=== PATIENT | male | born 1970 | race Caucasian/White ===

== ENCOUNTER → 2017-02-12 | Outpatient (CLI) | payer OTHER ==
[~2017-02-12] MED LIST: CYCL-259 PO; GABA300C10 PO; GUAI-103 PO; MV-M1TAB29 PO; OMEP20TA62 PO
[2017-02-12 09:20] LABS: HEMATOCRIT 46.5 % (39.2-51.8); HEMOGLOBIN 15.9 g/dL (13.7-18.0); WHITE BLOOD COUNT 9.9 x10^3/uL (3.4-10)
[2017-02-12 09:29] LABS: ASPARTATE AMINO TRANSFERASE 27 U/L (15-37); BLOOD UREA NITROGEN 17 mg/dL (7-18)
[2017-02-12 11:01] LABS: HIV 1&2 ANTIBODY SCREEN Nonreactive (Nonreactive); HIV-1 p24 ANTIGEN Nonreactive (Nonreactive)
== END | disposition home or self-care (01) ==
LOC: STAR 08:20
PROVIDERS: ATTEND Orthopaedic Surgery Orthopaedic Surgery of the Spine
DX: Z01.811 Encounter for preprocedural respiratory examination (principal); M50.10 Cervical disc disorder with radiculopathy, unspecified cervical region; R79.1 Abnormal coagulation profile
CPT/HCPCS: 36415; 71020; 80053; 80074; 81003; 85025; 85610; 85651; 85730; 86703; 87899; 93005; G0435

== ENCOUNTER 2017-02-18 05:28 | Inpatient (IN) | payer OTHER ==
[~2017-02-18] VITALS: Ht 175.3 cm; Wt 90.0 kg
[2017-02-18] MEDS ORDERED: LACTATED RINGERS 1,000 ML IV SCH (06:15)
[2017-02-18] MEDS ORDERED: BUPIVACAINE/PF 0.5% ONE (06:59)
[2017-02-18] MEDS ORDERED: BUPIVACAINE/PF 0.25% ONE (07:00)
[2017-02-18] MEDS ORDERED: THROMBIN 5,000 UNIT VIAL TP ONE (07:00)
[2017-02-18] MEDS ORDERED: LIDOCAINE/PF 1%-EPI 1:200K, 30 ML ONE (07:00)
[2017-02-18] MEDS ORDERED: EPINEPHRINE 1 MG/ML, 1ML ONE (07:00)
[2017-02-18] MEDS ORDERED: BACITRACIN 50,000 UNIT ONE (07:19)
[2017-02-18] MEDS ORDERED: PROMETHAZINE 25 MG/ML, 1ML IV PRN (07:30)
[2017-02-18] MEDS ORDERED: ONDANSETRON 2MG/ML, 2ML IVPush PRN (07:30)
[2017-02-18] MEDS ORDERED: MEPERIDINE/PF 25MG/0.5ML IVPush PRN (07:30)
[2017-02-18] MEDS ORDERED: FENTANYL PF 100 MCG/2ML IV PRN (07:30)
[2017-02-18] MEDS ORDERED: LABETALOL 5MG/ML, 20ML IV PRN ×2 (07:30→15:00)
[2017-02-18] MEDS ORDERED: hydrALAzine 20 MG/ML, 1ML IV PRN (07:30)
[2017-02-18] MEDS ORDERED: OXYcodone 5 MG/5 ML ORAL.SOL UDC PO PRN (07:30)
[2017-02-18] MEDS ORDERED: ACETAMINOPHEN 325 MG TABLET PO PRN (07:30)
[2017-02-18] MEDS ORDERED: NEOSTIGMINE 1 MG/ML, 10ML ONE (07:42)
[2017-02-18] MEDS ORDERED: SUCCINYLCHOLINE 20 MG/ML, 10ML ONE (07:42)
[2017-02-18] MEDS ORDERED: MIDAZOLAM 1 MG/ML, 2ML ONE (07:42)
[2017-02-18] MEDS ORDERED: ROCURONIUM 10 MG/ML ONE (07:42)
[2017-02-18] MEDS ORDERED: DEXAMETHASONE 4 MG/ML, 5ML ONE (07:42)
[2017-02-18] MEDS ORDERED: GLYCOPYRROLATE 0.2MG/1ML, 5ML ONE (07:42)
[2017-02-18] MEDS ORDERED: PROPOFOL 10 MG/ML, 50ML ONE (07:42)
[2017-02-18] MEDS ORDERED: CEFAZOLIN 1,000 MG ONE (07:42)
[2017-02-18] MEDS ORDERED: PROPOFOL 10 MG/ML, 20ML ONE (07:42)
[2017-02-18] MEDS ORDERED: BUPIVACAINE/PF 0.25% INFIL ONE (11:36)
[2017-02-18] MEDS ORDERED: HYDROmorphone 1 MG/ML, 1ML ONE (12:21)
[2017-02-18] MEDS: HYDROmorphone 1 MG/ML, 1ML IV PRN ×2 (12:22→12:40)
[2017-02-18] MEDS ORDERED: DIAZEPAM 5 MG/ML, 2ML IV ONE (12:30)
[2017-02-18] MEDS ORDERED: ACETAMINOPHEN 650 MG/20.3 ML UDC ONE (12:44)
[2017-02-18] MEDS ORDERED: OXYcodone 5 MG/5 ML ORAL.SOL UDC ONE (12:44)
[2017-02-18 14:00] VITALS: BP 117/77
[2017-02-18] MEDS ORDERED: DIPHENHYDRAMINE 50 MG/ML, 1ML IM PRN (15:00)
[2017-02-18] MEDS ORDERED: BISACODYL 10 MG SUPP PR PRN (15:00)
[2017-02-18] MEDS ORDERED: DIPHENHYDRAMINE 50 MG/ML, 1ML IVPush PRN (15:00)
[2017-02-18] MEDS ORDERED: MAGNESIUM HYDROXIDE 8%, 30ML UDC PO PRN (15:00)
[2017-02-18] MEDS ORDERED: DIPHENHYDRAMINE 50 MG CAPSULE PO PRN (15:00)
[2017-02-18] MEDS ORDERED: PROMETHAZINE 25 MG SUPP PR PRN (15:30)
[2017-02-18] MEDS ORDERED: DEXAMETHASONE 4 MG/ML, 1ML IV ONE (16:00)
[2017-02-18] MEDS: D5%-0.9% NACL+KCL 20MEQ 1,000 ML IV SCH (16:01)
[2017-02-18] MEDS: NICOTINE 14MG/24 HR PATCH.TD24 TD SCH (16:14)
[2017-02-18] MEDS: DEXAMETHASONE 4 MG/ML, 1ML IVPush SCH ×2 (16:30→23:12)
[2017-02-18] MEDS: HYDROmorphone 1 MG/ML, 1ML IVPush PRN ×2 (16:32→19:41)
[2017-02-18] MEDS: CEFAZOLIN PMX 1GM/50ML 50 ML IVPB SCH (19:24)
[2017-02-18] MEDS ORDERED: HYDROmorphone 1 MG/ML, 1ML IM PRN (20:54)
[2017-02-18] MEDS ORDERED: ZOLPIDEM 5MG TABLET PO PRN (21:00)
[2017-02-18] MEDS: PROMETHAZINE 25 MG/ML, 1ML IM PRN (21:06)
[2017-02-18 21:11] VITALS: BP 121/82
[2017-02-18] MEDS: DIAZEPAM 5 MG TABLET PO PRN (23:12)
[2017-02-18 23:24] VITALS: BP 118/88
[2017-02-19] MEDS: D5%-0.9% NACL+KCL 20MEQ 1,000 ML IV SCH (00:20)
[2017-02-19] MEDS: PROMETHAZINE 25 MG/ML, 1ML IM PRN (01:18)
[2017-02-19] MEDS ORDERED: LABETALOL 5MG/ML, 20ML IV PRN (03:00)
[2017-02-19 04:16] VITALS: BP 118/79
[2017-02-19] MEDS: CEFAZOLIN PMX 1GM/50ML 50 ML IVPB SCH ×2 (04:17→10:57)
[2017-02-19] MEDS: DIAZEPAM 5 MG TABLET PO PRN (05:50)
[2017-02-19] MEDS: OXYcodone IR 5MG TABLET PO PRN ×4 (08:44→13:41)
[2017-02-19 08:46] VITALS: BP 105/78
[2017-02-19] MEDS ORDERED: ACETAMINOPHEN 500 MG TABLET PO SCH (09:00)
[2017-02-19] MEDS ORDERED: SENNA/DOCUSATE TABLET PO SCH (09:00)
[2017-02-19] MEDS ORDERED: OMEPRAZOLE 20 MG CAPSULE.DR PO SCH (10:30)
[2017-02-19] MEDS: NICOTINE 14MG/24 HR PATCH.TD24 TD SCH (13:40)
[2017-02-19 13:55] VITALS: BP 140/89
== END 2017-02-19 14:35 | disposition home or self-care (01) | DRG 472 ==
LOC: OUT 05:28 → 4NOR 13:58 → OUT 14:22 → DCLOUNGE 02-19 14:05
PROVIDERS: ADMIT Orthopaedic Surgery Orthopaedic Surgery of the Spine; ATTEND Orthopaedic Surgery Orthopaedic Surgery of the Spine
PROC: 0RB50ZZ Excision of Cervicothoracic Vertebral Disc, Open Approach (ICD-10-PCS; principal; 2017-02-19)
PROC: 0RG20A0 Fusion of 2 or more Cervical Vertebral Joints with Interbody Fusion Device, Anterior Approach, Anterior Column, Open Approach (ICD-10-PCS; 2017-02-19)
PROC: 0RT30ZZ Resection of Cervical Vertebral Disc, Open Approach (ICD-10-PCS; 2017-02-19)
PROC: 0RG40A0 Fusion of Cervicothoracic Vertebral Joint with Interbody Fusion Device, Anterior Approach, Anterior Column, Open Approach (ICD-10-PCS; 2017-02-19)
PROC: 4A1134G Monitoring of Peripheral Nervous Electrical Activity, Intraoperative, Percutaneous Approach (ICD-10-PCS; 2017-02-19)
DX: M48.02 Spinal stenosis, cervical region (principal); M50.022 Cervical disc disorder at C5-C6 level with myelopathy; K21.9 Gastro-esophageal reflux disease without esophagitis; M25.78 Osteophyte, vertebrae; M47.22 Other spondylosis with radiculopathy, cervical region
CPT/HCPCS: 36415; 72040; 85651; 86141; 86850; 86900; C1713; J0171; J0690; J1100; J1170; J2250; J2550; J2704; J2710; J2795; J3010; J3360; J3490; C1762; J0330; J3480; J7120